=== PATIENT | male | born 1950 | race Caucasian/White ===

== ENCOUNTER 2020-02-04 18:50 | Emergency (ER) | payer MEDICARE, OTHER ==
[2020-02-04 19:03] VITALS: BP 141/90; PULSE 82
[2020-02-04] MEDS ORDERED: Lidocaine 1% 10 ML MDV INJECT ONE (19:08)
[2020-02-04] MEDS ORDERED: Diphtheria,Pertussis(Acell),Tetanus Vaccine 0.5 ML Syringe IM ONE (19:09)
--- NOTE | 2020-02-04 19:10 | EDM.PDOC ---
ED HPI GENERAL MEDICAL PROBLEM - General Chief Complaint: General Stated Complaint: RT LOWER LEG LACERATION Time Seen by Provider: 02/04/20 19:01 Source of Information: Reports: Patient History Limitations: Reports: No Limitations - History of Present Illness INITIAL COMMENTS - FREE TEXT/NARRATIVE: Patient is a 69-year-old male who presents with a 1 cm x 4 cm laceration to his right stovall. Patient states that he was stepping over a fence and hit his leg on a sharp piece of metal which caused the laceration. He is unsure when his last tetanus vaccination was. - Related Data Allergies Allergy/AdvReac Type Severity Reaction Status Date / Time No Known Allergies Allergy Verified 02/04/20 19:03 Home Meds: Home Meds Cyclobenzaprine [Flexeril] 10 mg PO DAILY PRN 01/05/15 [History] Meclizine [Antivert] 25 mg PO TID #15 tablet 01/05/15 [Rx] Multivitamin [Multiple Vitamins] 1 tab PO DAILY 01/05/15 [History] Zolpidem [Ambien CR] 12.5 mg PO BEDTIME PRN 01/05/15 [History] diazePAM [Valium] 5 mg PO DAILY PRN 01/05/15 [History] metFORMIN [Glucophage] 1,000 mg PO DAILY 01/05/15 [History] Social & Family History - Tobacco Use Smoking Status *Q: Light Tobacco Smoker Years of Tobacco use: 40 Packs/Tins Daily: 1 - Caffeine Use Caffeine Use: Reports: Tea - Alcohol Use Days Per Week of Alcohol Use: 1 Number of Drinks Per Day: 1 Total Drinks Per Week: 1 - Recreational Drug Use Recreational Drug Use: No - Living Situation & Occupation Living situation: Reports: Alone, Single ED ROS GENERAL - Review of Systems Review Of Systems: Comprehensive ROS is negative, except as noted in HPI. ED EXAM, GENERAL - Physical Exam Exam: See Below Exam Limited By: No Limitations General Appearance: Alert, WD/WN, No Apparent Distress Respiratory/Chest: No Respiratory Distress, Lungs Clear, Normal Breath Sounds, No Accessory Muscle Use, Chest Non-Tender Cardiovascular: Normal Peripheral Pulses, Regular Rate, Rhythm, No Edema, No Gallop, No JVD, No Murmur, No Rub Neurological: Alert, Oriented, CN II-XII Intact, Normal Cognition, Normal Gait, Normal Reflexes, No Motor/Sensory Deficits Skin Exam: Warm, Dry, Normal Color, No Rash, Other (1 cm wide by 4 cm long vertical laceration to the right stovall. No active bleeding present.) ED GENERAL MEDICAL PROCEDURES - Laceration/Wound Repair Right Lower Leg Lac/wound length in cm: 4 Appearance: Subcutaneous Distal NVT: Neuro & Vascular Intact Anesthetic Type: Local Local Anesthesia - Lidocaine (Xylocaine): 1% Plain Local Anesthetic Volume: 5cc Skin Prep: Chlorhexidine (Hibiciens), Providone-Iodine (Betadine), Saline Exploration/Debridement/Repair: Wound Explored, In a Bloodless Field, No Foreign Material Found Closed with: Sutures Suture Size: 3-0 # of Sutures: 7 Suture Type: Nylon Suture Size: 3-0 # of Sutures: 2 Repaired with: Vicryl Sterile Dressing Applied: Nurse Tetanus Status Addressed: Yes Complications: No Course - Vital Signs Last Recorded V/S: Last Vital Signs Temp 98.2 F 02/04/20 19:02 Pulse 82 02/04/20 19:02 Resp 17 02/04/20 19:02 BP 141/90 H 02/04/20 19:02 Pulse Ox 98 02/04/20 19:02 - Orders/Labs/Meds Orders: Active Orders 24 hr Category Date Time Status Vaccines to be Administered [RC] PER UNIT ROUTINE Care 02/04/20 19:09 Active Meds: Medications Discontinued Medications Generic Name Dose Route Start Last Admin Trade Name Freq PRN Reason Stop Dose Admin Diphtheria/Tetanus/Acell Pertussis 0.5 ml 02/04/20 19:09 02/04/20 19:13 Adacel IM 02/04/20 19:10 0.5 ml .ONCE ONE Administration Lidocaine HCl 10 ml 02/04/20 19:08 02/04/20 19:13 Xylocaine 1% INJECT 02/04/20 19:09 10 ml ONETIME ONE Administration Departure - Departure Time of Disposition: 20:24 Disposition: Home, Self-Care 01 Condition: Good Clinical Impression: Laceration - Discharge Information *PRESCRIPTION DRUG MONITORING PROGRAM REVIEWED*: No *COPY OF PRESCRIPTION DRUG MONITORING REPORT IN PATIENT JORGE: No Instructions: Sutures, Anthony, or Adhesive Wound Closure, [id number] Referrals: Collin Delarosa Jr, MD [Primary Care Provider] - Forms: ED Department Discharge Additional Instructions: You were seen in the emergency department today for a laceration to your right lower leg. The wound was cleansed and closed with 2 internal sutures and 7 external sutures. These should stay intact until at least next Friday. I would recommend that you call to schedule an appointment with your primary care provider's nurse to have them removed at that time. Keep the wound clean and dry. Wash it twice daily with normal soap and water. Watch for signs of infection including increased redness, swelling, or purulent drainage. If these should occur, you should be seen by your primary care provider or in the ER. Return to the ER as needed. Sepsis Event Note - Evaluation Sepsis Screening Result: No Definite Risk - Focused Exam Vital Signs: Vital Signs Temp Pulse Resp BP Pulse Ox 02/04/20 19:02 98.2 F 82 17 141/90 H 98 Date Exam was Performed: 02/04/20 Time Exam was Performed: 22:23 - My Orders Last 24 Hours: My Active Orders 02/04/20 19:09 Vaccines to be Administered [RC] PER UNIT ROUTINE - Assessment/Plan Last 24 Hours: My Active Orders 02/04/20 19:09 Vaccines to be Administered [RC] PER UNIT ROUTINE
== END 2020-02-04 20:31 | disposition home or self-care (01) ==
LOC: JD.ED 18:50
DX: S81.811A Laceration without foreign body, right lower leg, initial encounter (principal); Z79.899 Other long term (current) drug therapy; Z23 Encounter for immunization; F17.210 Nicotine dependence, cigarettes, uncomplicated; W26.8XXA Contact with other sharp object(s), not elsewhere classified, initial encounter
CPT/HCPCS: 12002; 90471; 90715; 99282; J2001

== ENCOUNTER 2021-02-23 01:04 | Emergency (ER) | payer MEDICARE, OTHER ==
[2021-02-23] MEDS ORDERED: Sodium Chloride 0.9% 10 ML Syringe FLUSH PRN (01:28)
--- NOTE | 2021-02-23 03:03 | EDM.PDOC ---
ED HPI GENERAL MEDICAL PROBLEM - General Chief Complaint: Abdominal Pain Stated Complaint: DIARRHEA VOMITING UPPER ABDOMINAL PAIN Time Seen by Provider: 02/23/21 03:03 - History of Present Illness INITIAL COMMENTS - FREE TEXT/NARRATIVE: 70-year-old male presents the emergency room with diarrhea and abdominal pain. 2 evenings ago the patient developed upset stomach he vomited 1 time then developed some loose stools at times this evening bloody. The last 3 times have been bloody. The pain is mostly lower abdominal favoring the left side. Patient has not had pain like this in the past has never been diagnosed with diverticulitis in the past. Patient denies any fevers or chills and he noticed this evening that his appetite was coming back however he has been little reluctant to eat anything. The patient is treated for diabetes and takes Metformin for this. Lower Abdomen Pain Score (Numeric/FACES): 5 - Related Data Allergies Allergy/AdvReac Type Severity Reaction Status Date / Time No Known Allergies Allergy Verified 02/23/21 01:20 Home Meds: Home Meds Cyclobenzaprine [Flexeril] 10 mg PO DAILY PRN 01/05/15 [History] Meclizine [Antivert] 25 mg PO TID #15 tablet 01/05/15 [Rx] Multivitamin [Multiple Vitamins] 1 tab PO DAILY 01/05/15 [History] Zolpidem [Ambien CR] 12.5 mg PO BEDTIME PRN 01/05/15 [History] diazePAM [Valium.] 5 mg PO DAILY PRN 01/05/15 [History] metFORMIN [Glucophage] 1,000 mg PO DAILY 01/05/15 [History] Ondansetron [Zofran ODT] 4 mg PO Q6H PRN #10 tab.dis 02/23/21 [Rx] levoFLOXacin [Levaquin] 500 mg PO DAILY #9 tab 02/23/21 [Rx] metroNIDAZOLE [Flagyl] 500 mg PO Q8H #29 tab 02/23/21 [Rx] Past Medical History HEENT History: Reports: Other (See Below) Other HEENT History: glasses Endocrine/Metabolic History: Reports: Diabetes, Type II Social & Family History - Tobacco Use Tobacco Use Status *Q: Never Tobacco User Second Hand Smoke Exposure: No - Caffeine Use Caffeine Use: Reports: Tea - Recreational Drug Use Recreational Drug Use: No - Living Situation & Occupation Living situation: Reports: Alone, Single ED ROS GENERAL - Review of Systems Review Of Systems: See Below Constitutional: Reports: No Symptoms HEENT: Reports: No Symptoms Respiratory: Reports: No Symptoms Cardiovascular: Reports: No Symptoms Endocrine: Reports: No Symptoms GI/Abdominal: Reports: Abdominal Pain, Bloody Stool, Diarrhea, Vomiting ED EXAM, GENERAL - Physical Exam Exam: See Below Exam Limited By: No Limitations General Appearance: Alert, No Apparent Distress Head: Atraumatic, Normocephalic Neck: Normal Inspection, Supple, Non-Tender, Full Range of Motion Respiratory/Chest: No Respiratory Distress, Lungs Clear, Normal Breath Sounds Cardiovascular: Regular Rate, Rhythm, No Edema, No Murmur GI/Abdominal: Normal Bowel Sounds, Soft, Tender (He has some vague discomfort in the lower midportion of the abdomen extending to the left side. No rigidity rebound or guarding). No: Non-Tender (Male) Exam: No Hernia Rectal (Males) Exam: Normal Exam, Heme + Stool (No stool in the vault got some debris that was at a light red tinge to it that was Hemoccult positive) Back Exam: Normal Inspection. No: CVA Tenderness (L), CVA Tenderness (R) Extremities: Normal Inspection, No Pedal Edema Neurological: Alert, Oriented, Normal Cognition Course - Vital Signs Last Recorded V/S: Last Vital Signs Temp 36.2 C 02/23/21 01:17 Pulse 86 02/23/21 01:17 Resp 16 02/23/21 01:17 BP 151/88 H 02/23/21 01:17 Pulse Ox 95 02/23/21 01:17 - Orders/Labs/Meds Orders: Active Orders 24 hr Category Date Time Status Peripheral IV Care [RC] . DIRECTED Care 02/23/21 01:28 Active Abdomen Pelvis w Cont [CT] Stat Exams 02/23/21 03:23 Taken UA RFX REINA AND CULT IF INDIC [URIN] Stat Lab 02/23/21 01:27 Ordered Lactated Ringers [Ringers, Lactated] 1,000 ml Med 02/23/21 03:30 Active IV ASDIRECTED Sodium Chloride 0.9% [Saline Flush] Med 02/23/21 01:28 Active 10 ml FLUSH ASDIRECTED PRN Peripheral IV Insertion Adult [OM.PC] Routine Oth 02/23/21 01:28 Ordered Medication Orders Lactated Ringer's (Ringers, Lactated) 1,000 mls @ 125 mls/hr IV ASDIRECTED SOPHIA Last Infusion: 02/23/21 04:23 Dose: 125 mls/hr Documented by: Infusion: 02/23/21 03:40 Dose: 999 mls/hr Documented by: Admin: 02/23/21 03:31 Dose: 125 mls/hr Documented by: FLAQUITO Sodium Chloride (Sodium Chloride 0.9% 10 Ml Syringe) 10 ml FLUSH ASDIRECTED PRN PRN Reason: Keep Vein Open Last Admin: 02/23/21 02:02 Dose: 10 ml Documented by: FLAQUITO Labs: Laboratory Tests 02/23/21 02/23/21 Range/Units 02:00 02:00 WBC 15.74 H (4.23-9.07) K/mm3 RBC 4.50 L (4.63-6.08) M/mm3 Hgb 13.2 L (13.7-17.5) gm/dl Hct 39.2 L (40.1-51.0) % MCV 87.1 (79.0-92.2) fl MCH 29.3 (25.7-32.2) pg MCHC 33.7 (32.2-35.5) g/dl RDW Std Deviation 39.6 (35.1-43.9) fL Plt Count 256 (163-337) K/mm3 MPV 10.4 (9.4-12.3) fl Neutrophils % (Manual) 73 H (40-60) % Band Neutrophils % 0 (0-10) % Lymphocytes % (Manual) 17 L (20-40) % Atypical Lymphs % 0 % Monocytes % (Manual) 8 (2-10) % Eosinophils % (Manual) 2 (0.8-7.0) % Basophils % (Manual) 0 L (0.2-1.2) Platelet Estimate Adequate RBC Morph Comment Normal Sodium 139 (136-145) mEq/L Potassium 3.8 (3.5-5.1) mEq/L Chloride 101 (98-107) mEq/L Carbon Dioxide 28 (21-32) mEq/L Anion Gap 13.8 (5-15) BUN 18 (7-18) mg/dL Creatinine 1.2 (0.7-1.3) mg/dL Est Cr Clr Drug Dosing 56.21 mL/min Estimated GFR (MDRD) > 60 (>60) mL/min BUN/Creatinine Ratio 15.0 (14-18) Glucose 170 H (70-99) mg/dL Calcium 9.1 (8.5-10.1) mg/dL Total Bilirubin 0.6 (0.2-1.0) mg/dL AST 40 H (15-37) U/L ALT 63 (16-63) U/L Alkaline Phosphatase 60 (46-116) U/L Total Protein 7.3 (6.4-8.2) g/dl Albumin 3.6 (3.4-5.0) g/dl Globulin 3.7 gm/dL Albumin/Globulin Ratio 1.0 (1-2) Lipase 96 (73-393) U/L Meds: Medications Generic Name Dose Route Start Last Admin Trade Name Freq PRN Reason Stop Dose Admin Lactated Ringer's 1,000 mls @ 125 mls/hr 02/23/21 03:30 02/23/21 04:23 Ringers, Lactated IV 125 mls/hr ASDIRECTED SOPHIA Infusion Sodium Chloride 10 ml 02/23/21 01:28 02/23/21 02:02 Sodium Chloride 0.9% 10 Ml Syringe FLUSH 10 ml ASDIRECTED PRN Administration Keep Vein Open Discontinued Medications Generic Name Dose Route Start Last Admin Trade Name Freq PRN Reason Stop Dose Admin Lactated Ringer's 500 mls @ 999 mls/hr 02/23/21 03:34 02/23/21 03:54 Ringers, Lactated IV 02/23/21 04:04 Not Given .BOLUS ONE - Re-Assessments/Exams Free Text/Narrative Re-Assessment/Exam: 02/23/21 03:44 Labs show elevated white blood count with a symptom complex resembling diverticulitis we will go ahead and check a CT. 02/23/21 06:01 CT evaluation shows some wall thickening and adjacent fat stranding of the distal descending and sigmoid colon consistent with infectious or inflammatory colitis. There is noted diverticulosis but the length of involvement is greater than one hundred expect for diverticulitis according to the radiologist. He also mention no evidence of active GI bleeding. I reviewed this with Dr. Lowe who agrees we probably should treat it like diverticulitis. Patient would like to attempt outpatient treatment. Departure - Departure Time of Disposition: 06:12 Disposition: Home, Self-Care 01 Clinical Impression: Diverticulitis - Discharge Information Referrals: PCP,None [Primary Care Provider] - Rony Cisneros MD [Ordering Only Provider] - Forms: ED Department Discharge Additional Instructions: Return to the emergency room with any questions problems or worsening symptoms. As we discussed here in the emergency room you probably have diverticulitis. You have been given 3 prescriptions the first 1 is for nausea and vomiting take 1 every 6 hours only if needed. The second 2 are antibiotics the first 1 is Flagyl take 1 every 8 hours your first dose was given here in the emergency room. The second 1 was levofloxacin take 1 daily your first dose was given here in the emergency room so start this medication tomorrow morning. Push lots of fluids. Follow-up in the clinic early this next week for recheck. Sepsis Event Note (ED) - Evaluation Sepsis Screening Result: No Definite Risk - Focused Exam Vital Signs: Vital Signs Temp Pulse Resp BP Pulse Ox 02/23/21 01:17 36.2 C 86 16 151/88 H 95 - My Orders Last 24 Hours: My Active Orders 02/23/21 01:27 UA RFX REINA AND CULT IF INDIC [URIN] Stat 02/23/21 01:28 Peripheral IV Care [RC] . DIRECTED Sodium Chloride 0.9% [Saline Flush] 10 ml FLUSH ASDIRECTED PRN Peripheral IV Insertion Adult [OM.PC] Routine 02/23/21 03:23 Abdomen Pelvis w Cont [CT] Stat 02/23/21 03:30 Lactated Ringers [Ringers, Lactated] 1,000 ml IV ASDIRECTED - Assessment/Plan Last 24 Hours: My Active Orders 02/23/21 01:27 UA RFX REINA AND CULT IF INDIC [URIN] Stat 02/23/21 01:28 Peripheral IV Care [RC] . DIRECTED Sodium Chloride 0.9% [Saline Flush] 10 ml FLUSH ASDIRECTED PRN Peripheral IV Insertion Adult [OM.PC] Routine 02/23/21 03:23 Abdomen Pelvis w Cont [CT] Stat 02/23/21 03:30 Lactated Ringers [Ringers, Lactated] 1,000 ml IV ASDIRECTED
[2021-02-23] MEDS ORDERED: Lactated Ringers 1,000 ML IV SCH (03:30)
[2021-02-23] MEDS ORDERED: Lactated Ringers 500 ML IV ONE (03:34)
[2021-02-23] MEDS ORDERED: Levofloxacin 500 MG Tab PO ONE (06:04)
[2021-02-23] MEDS ORDERED: metroNIDAZOLE 500 MG Tab PO ONE (06:04)
[2021-02-23 06:26] VITALS: BP 136/72; PULSE 80
--- NOTE | 2021-02-23 08:23 | CT ---
Abdomen and pelvis Technique: Multiple axial sections were obtained from above the dome of the diaphragm inferiorly through the pubic symphysis. Intravenous and oral contrast was utilized. Delayed images were also obtained through the bladder. Reconstructed coronal and sagittal images were also obtained. Comparison: No prior abdominal imaging is available. Findings: Visualized lung bases show slight atelectasis within the lingula. Nothing acute is otherwise seen. Equivocal fatty infiltration within the liver. Spleen size is normal. Gallbladder contains no calcified gallstones. Adrenal glands show no nodule. Pancreas shows a minimal low density abnormality measuring about 4-5 mm. This is nonspecific but given the patient's age is most likely benign. Continued follow-up will, however, be recommended. Kidneys show symmetric contrast enhancement. Areas of scarring are noted within the left kidney. Symmetric enhancement of both kidneys are noted. Delayed images show contrast within the distal ureters and within the bladder. Abdominal aorta shows atherosclerotic change without aneurysm. Atherosclerotic change continues into the iliac vessels. No retroperitoneal adenopathy or mesenteric abnormalities are seen. Appendix is seen which is normal. Diffuse bowel wall thickening is seen within the sigmoid colon. Slight amount of fluid is seen around this bowel wall thickening. Very minimal diverticulosis is noted. Right fat-containing inguinal hernia is seen which contains a small amount of fluid. Minimal fat-containing umbilical hernia is also noted. Bone window settings were reviewed. Scattered degenerative change is noted within the spine. No acute osseous abnormality is appreciated. Impression: 1. Bowel wall thickening within the sigmoid colon which most likely is due to colitis. 2. Minimal diverticuli are seen within the colon with no findings of diverticulitis. 3. Small abnormality within the pancreas. Follow-up abdominal CT recommended in 9 months to confirm stability. This follow-up study would occur in November,. 4. Fat-containing right inguinal hernia which contains a small amount of fluid. 5. Other findings believed to be incidental as noted above. Diagnostic code #3 I mostly agree with preliminary report from [facility] finalized on 02/23/21, 6:32 AM CDT, code 2
== END 2021-02-23 06:25 | disposition home or self-care (01) ==
LOC: JD.ED 01:04
DX: K57.32 Diverticulitis of large intestine without perforation or abscess without bleeding (principal); E11.9 Type 2 diabetes mellitus without complications; Z79.84 Long term (current) use of oral hypoglycemic drugs; Z79.899 Other long term (current) drug therapy
CPT/HCPCS: 36415; 74177; 80053; 83690; 85007; 85027; 99284; A9270; J7120